=== PATIENT | female | born 1980 | race American Indian/Alaskan Native ===

== ENCOUNTER 2017-05-29 18:46 | Emergency (ER) | payer BC ==
[2017-05-29 19:43] VITALS: BP 122/75
--- NOTE | 2017-05-29 20:45 | Emergency Department Report ---
ED General Adult HPI - General Chief complaint: Upper Respiratory Infection Stated complaint: FLU SYMPTOMS Time Seen by Provider: 05/29/17 20:36 Source: patient Mode of arrival: Ambulatory Limitations: No Limitations - History of Present Illness Initial comments: This is a 37-year-old female, the patient is previously unknown to this provider , she denies chronic medical conditions, she is 2, para 1, last menstrual period is March 25, and reports that she is going to follow up with her EMERGENCY ROOM CLERK doctor this Monday. Her EMERGENCY ROOM CLERK doctor is Dr. Rojo/Dr. Durham. Patient presents to the ER with complaint of flulike symptoms for 3 weeks. She endorses body aches, myalgias, weakness, subjective fevers. Positive relief with acetaminophen. Symptoms worsened over the past 48-72 hours. Patient denies severe headache, sore throat, chest pain, abdominal pain, shortness of breath, irritative/obstructive urinary symptoms. Symptoms do not radiate anywhere, she endorses no exacerbating or relieving factors. -: Gradual, week(s) Location: back, left, right, upper extremity, lower extremity Quality: aching Consistency: constant Improves with: none Worsens with: none Associated Symptoms: denies other symptoms, fever/chills, loss of appetite, malaise, weakness. denies: confusion, chest pain, cough, diaphoresis, headaches , nausea/vomiting, rash, seizure, shortness of breath, syncope - Related Data Previous Rx's Medication Instructions Recorded Last Taken Type Acetaminophen [Tylenol Arthritis] 650 mg PO Q6HR PRN #30 tablet.er 05/29/17 Unknown Rx Doxylamine Succinate/Vit B6 1 each PO QHS PRN #30 tablet. 05/29/17 Unknown Rx [Josh Rosado 10-10 mg Tablet] Elvira Root [Elvira] 250 mg PO QID PRN #30 capsule 05/29/17 Unknown Rx Oseltamivir [Tamiflu] 75 mg PO BID #10 cap 05/29/17 Unknown Rx Vit Calc,Iron,Folic 1 each PO QDAY #30 tablet 05/29/17 Unknown Rx [ Vitamins] Allergies Allergy/AdvReac Type Severity Reaction Status Date / Time No Known Allergies Allergy Unverified 05/29/17 19:43 ED Review of Systems ROS: Stated complaint: FLU SYMPTOMS Other details as noted in HPI ED Past Medical Hx - Past Medical History Previous Medical History?: No - Surgical History Past Surgical History?: No - Social History Smoking Status: Never Smoker Substance Use Type: None - Medications Home Medications: Home Medications Medication Instructions Recorded Confirmed Last Taken Type Acetaminophen [Tylenol Arthritis] 650 mg PO Q6HR PRN #30 tablet.er 05/29/17 Unknown Rx Doxylamine Succinate/Vit B6 1 each PO QHS PRN #30 tablet. 05/29/17 Unknown Rx [Diclegis Dr 10-10 mg Tablet] Elvira Root [Elvira] 250 mg PO QID PRN #30 capsule 05/29/17 Unknown Rx Oseltamivir [Tamiflu] 75 mg PO BID #10 cap 05/29/17 Unknown Rx Vit Calc,Iron,Folic 1 each PO QDAY #30 tablet 05/29/17 Unknown Rx [ Vitamins] ED Physical Exam - General Limitations: No Limitations General appearance: alert, in no apparent distress - Head Head exam: Present: atraumatic, normocephalic - Eye Eye exam: Present: normal appearance, EOMI. Absent: nystagmus - ENT ENT exam: Present: normal exam, normal orophraynx, mucous membranes moist, normal external ear exam - Neck Neck exam: Present: normal inspection, full ROM - Respiratory Respiratory exam: Present: normal lung sounds bilaterally. Absent: respiratory distress - Cardiovascular Cardiovascular Exam: Present: regular rate, normal rhythm, normal heart sounds. Absent: bradycardia, tachycardia, irregular rhythm, systolic murmur, diastolic murmur, rubs, gallop - GI/Abdominal GI/Abdominal exam: Present: soft, normal bowel sounds. Absent: distended, tenderness, guarding, rebound, rigid, pulsatile mass - Extremities Exam Extremities exam: Present: normal inspection, full ROM - Back Exam Back exam: Present: normal inspection, full ROM. Absent: tenderness, CVA tenderness (R), paraspinal tenderness, vertebral tenderness - Neurological Exam Neurological exam: Present: alert, oriented X3, CN II-XII intact, normal gait, other (Extraocular movements intact. Tongue midline. No facial droop. Facial sensation intact to light touch in the V1, V2, V3 distribution bilaterally. 5 and 5 strength in 4 extremities.. Sensation is intact to light touch in 4 extremities.). Absent: motor sensory deficit - Psychiatric Psychiatric exam: Present: normal affect, normal mood - Skin Skin exam: Present: warm, dry, intact, normal color. Absent: rash ED Course Vital Signs 05/29/17 19:39 Temperature 98.3 F Pulse Rate 69 Respiratory 17 Rate Blood Pressure 122/75 O2 Sat by Pulse 99 Oximetry ED Medical Decision Making - Lab Data Vital Signs 05/29/17 19:39 Temperature 98.3 F Pulse Rate 69 Respiratory 17 Rate Blood Pressure 122/75 O2 Sat by Pulse 99 Oximetry - Medical Decision Making Differential diagnosis, including but not limited to: Influenza, influenza-like illness, Assessment and plan: 37-year-old female who is with an influenza-like illness, patient has follow-up with her EMERGENCY ROOM CLERK doctor in 2 days, as per current CDC recommendations, patient to be started on Tamiflu. Risks, benefits, alternatives discussed with patient, she endorsed understanding and verbalized understanding. Critical care attestation.: If time is entered above; I have spent that time in minutes in the direct care of this critically ill patient, excluding procedure time. ED Disposition Clinical Impression: Influenza-like illness, Disposition: - TO HOME OR SELFCARE Is pt being admited?: No Does the pt Need Aspirin: No Condition: Stable Instructions: Influenza (ED) Additional Instructions: Take the medications as directed. Follow-up with her private EMERGENCY ROOM CLERK doctor on Monday as planned. Return to the ER right away with new pain, worsened pain , migration of pain, intractable nausea or vomiting, confusion, inability to tolerate liquid feeds. Referrals: CHAUNCEY DURHAM MD [Staff Physician] - 3-5 Days Forms: Work/School Release Form(ED)
== END 2017-05-29 20:45 | disposition home or self-care (01) ==
LOC: ED 18:46
DX: O26.891 Other specified pregnancy related conditions, first trimester (principal); M79.1 Myalgia; R50.9 Fever, unspecified; R53.1 Weakness; Z3A.09 9 weeks gestation of pregnancy
CPT/HCPCS: 99282

== ENCOUNTER 2018-01-01 15:27 | Outpatient (CLI) | payer BC ==
--- NOTE | 2018-01-01 18:34 | Ultrasound Report ---
FINAL REPORT EXAM: US OB LIMITED HISTORY: wellbeing evaluate QUYNH. TECHNIQUE: Grayscale , color flow and M-mode imaging was performed for the purpose of evaluation of QUYNH. FINDINGS: There is demonstration of a single intrauterine gestation in cephalic position. heart rate is measured at 132 beats per minute. QUYNH is measured at 11 centimeters. IMPRESSION: 1. QUYNH measured at 11 centimeters. 2. heart rate measured at 132 beats per minute. 3. Cephalic position.
--- NOTE | 2018-01-01 18:36 | Ultrasound Report ---
FINAL REPORT EXAM: US OB BPP WO NON-STRESS HISTORY: wellbeing evaluate biophysical profile TECHNIQUE: Grayscale and color-flow imaging was performed for the purpose of evaluating biophysical profile. FINDINGS: There is demonstration of a single intrauterine gestation in cephalic position. Biophysical profile is as follows: breathing movements score 2 movement score 2 posture and tone score 2 Qualitative amniotic fluid volume score 2. heart rate is measured at 129 beats per minute. IMPRESSION: 1. Biophysical profile 11/22 2. Cephalic position. 3. heart rate measured at 129 beats per minute.
[2018-01-01 18:51] VITALS: BP 124/72
== END 2018-01-01 18:55 | disposition home or self-care (01) ==
LOC: TRG 15:27
PROVIDERS: ATTEND Obstetrics & Gynecology
DX: O47.1 False labor at or after 37 completed weeks of gestation (principal); Z3A.40 40 weeks gestation of pregnancy
CPT/HCPCS: 59025; 76815; 76819